=== PATIENT | male | born 1975 | race Caucasian/White ===

== ENCOUNTER 2017-07-28 13:49 | Emergency (ER) | payer MEDICARE, MEDICAID ==
--- NOTE | 2017-07-28 14:03 | ED Physician Chart ---
ED Chief Complaint/HPI - Patient Information Date Seen:: 07/28/17 Time Seen:: 13:55 Chief Complaint:: altered mental status History of Present Illness:: According to the EMT who brought the patient here patient was arrested apparently for sitting out front of a liquor store drinking alcohol. At the [facility] patient became nonresponsive. Paramedics were called. Accu-Chek was about 143. Patient was brought here by EMT ambulance. Allergies:: Allergies Allergy/AdvReac Type Severity Reaction Status Date / Time No Known Allergies Allergy Verified 04/07/17 12:18 Historian:: EMS Review:: Nurse's Note Reviewed ED Review of Systems - Review of Systems General/Constitutional: No fever, No chills, Weakness Skin: No skin lesions Head: No headache Eyes: No loss of vision ENT: No earache Neck: No neck pain Cardio Vascular: No chest pain Pulmonary: No SOB GI: No nausea, No vomiting, No diarrhea G/U: No dysuria Musculoskeletal: No bone or joint pain Endocrine: No polyuria, No polydipsia Psychiatric: Other (unknown) Hematopoietic: No bruising, No lymphadenopathy Allergic/Immuno: No urticaria Neurological: Weakness ED Past Medical History - Past Medical History Past Medical History: Other (unavailable) Family History: Other (unavailable) Social History: Other (unavailable) Surgical History: other (unavailable) Psychiatricy History: Other (unavailable) Family Medical History - Family Member Father Ethnicity: Non- Living Status: Still Living Hx Family Cancer: No Hx Family Coronary Artery Disease: No Hx Family Congestive Heart Failure: No Hx Family Hypertension: No Hx Family Stroke: No Hx Family Diabetes: No Hx Family Seizures: No Hx Family Dementia: No Hx Family AIDS: No Hx Family HIV: No Hx Family COPD: No Hx Family Hepatitis: No ED Physical Exam - Physical Examination General/Constitutional: Well-developed, well-nourished Other Gen/Cons comments:: Patient does not give a history but grimaces when lower abdomen is palpated saying I have to go the bathroom. Head: Atraumatic Eyes: Lids, conjuctiva normal, PERRL Skin: Nl inspection, No rash, No skin lesions, No ecchymosis, Well hydrated ENMT: External ears, nose nl Neck: No nuchal rigidity Respiratory: Nl effort/Exclusion, Clear to Auscultation Cardio Vascular: RRR GI: No organomegaly, No hernia Other GI comments:: Lower abdominal tenderness Extremities: No edema Neuro/Psych: No focal deficits ED Labs/Radiology/EKG Results - Lab Results Comments:: Laboratory Results - last 24 hr 07/28/17 14:21 Ethyl Alcohol 342 H ED Septic Shock - . Is Septic Shock (SBP<90, OR Lactate>4 mmol\L) present?: No ED Reassessment (Disposition) - Reassessment Reassessment:: At 2215 patient stated he felt better. Per the RN patient has been normally ambulatory to the emergency department. We'll discharge in the a.m. Reassessment Condition:: Improved - Diagnosis Diagnosis:: Acute alcohol intoxication - Patient Disposition Discharge/Transfer:: Home Condition at Disposition:: Stable, Improved
== END 2017-07-29 06:50 | disposition home or self-care (01) ==
LOC: ER 13:49
DX: F10.129 Alcohol abuse with intoxication, unspecified (principal)
CPT/HCPCS: 36415-UA; 80320-TC; Z7502